=== PATIENT | male | born 1970 | race Two or more races ===

== ENCOUNTER 2018-07-07 05:30 | Day surgery (SDC) | payer OTHER | END 2018-07-07 11:00 | disposition home or self-care (01) | LOC: AMB-ENDOS 05:30 | DX: K64.1 Second degree hemorrhoids (principal); Z12.11 Encounter for screening for malignant neoplasm of colon ==

== ENCOUNTER 2019-09-28 10:36 | Outpatient (CLI) | payer OTHER | END 2019-09-28 10:51 | disposition home or self-care (01) | LOC: NUCLEAR 10:36 | PROVIDERS: ATTEND Internal Medicine Cardiovascular Disease | DX: I73.9 Peripheral vascular disease, unspecified (principal); R53.1 Weakness; R25.2 Cramp and spasm ==

== ENCOUNTER 2019-10-05 13:59 | Outpatient (CLI) | payer OTHER | END 2019-10-05 14:20 | disposition home or self-care (01) | LOC: NUCLEAR 13:59 | PROVIDERS: ATTEND Internal Medicine Cardiovascular Disease | DX: I87.2 Venous insufficiency (chronic) (peripheral) (principal); R25.2 Cramp and spasm; R53.1 Weakness ==